=== PATIENT | female | born 1985 | race Caucasian/White ===

== ENCOUNTER 2025-04-21 20:15 | Emergency (ER) | payer MEDICAID ==
[~2025-04-21] VITALS: Ht 165.1 cm; Wt 118.2 kg
[2025-04-21 20:25] VITALS: TEMP 98.6
[2025-04-21 21:01] LABS: PLATELET COUNT (AUTO) 385 K/uL (150-450); RED BLOOD CELL COUNT(AUTO) 4.87 MIL/uL (4.00-5.20); RED CELL DISTRIBUTION WIDTH 14.5 % (11.5-14.5); WHITE BLOOD COUNT (AUTO) 11.8 K/uL (4.5-11.0)
[2025-04-21 21:13] LABS: CALCIUM, TOTAL 8.8 mg/dL (8.8-10.5); CREATININE 0.72 mg/dL (0.60-1.30); GLOMERULAR FILTR. RATE CALC > 60 mL/min (>60); GLUCOSE,RANDOM 94 mg/dL (70-110); SODIUM SERUM 142 mmol/L (136-145); UREA NITROGEN, BLOOD 10 mg/dL (7-18)
[2025-04-21 21:27] LABS: COVID AG,FIA SOURCE NASAL SWAB
[2025-04-21 21:50] LABS: INFLUENZA TYPE A NEGATIVE FOR TYPE A (NEGATIVE); INFLUENZA TYPE B NEGATIVE FOR TYPE B (NEGATIVE); SARS-COV2 (COVID) ANTIGEN,FIA Negative (Negative)
[2025-04-21] MEDS: KETOROLAC TROMETHAMINE 30 MG/ML VIAL IM ONE (23:10)
[2025-04-21] MEDS: AMOX TR/POT CLAV 875 MG/125 MG TABLET PO ONE (23:10)
[2025-04-21 23:21] LABS: GLUCOMETER DEV NAME(LOC) ERT.7; GLUCOSE,POINT OF CARE 86 MG/DL (70-110)
[2025-04-21] MEDS ORDERED: CIPOTIC AS (23:27)
[2025-04-21] MEDS ORDERED: AMOX-427 PO (23:28)
[2025-04-21 23:30] VITALS: BP 151/84; PULSE 81; RESP 18; O2SAT 98
== END 2025-04-21 23:45 | disposition home or self-care (01) ==
LOC: EMS 20:29
DX: H60.92 Unspecified otitis externa, left ear (principal); H66.92 Otitis media, unspecified, left ear; Z20.822 Contact with and (suspected) exposure to COVID-19
CPT/HCPCS: 99283; 87426; 80048; 82962; 84703; 85025; 87804; 36415; 96372; J1885; J7512